=== PATIENT | female | born 1990 | race Caucasian/White ===

== ENCOUNTER 2017-12-23 18:36 | Emergency (ER) | payer MEDICAID ==
--- NOTE | 2017-12-23 19:01 | EDM.PDOC ---
ED HPI GENERAL MEDICAL PROBLEM - General Chief Complaint: Flank Pain Stated Complaint: right flank pain Time Seen by Provider: 12/23/17 18:50 Source of Information: Reports: Patient History Limitations: Reports: No Limitations - History of Present Illness INITIAL COMMENTS - FREE TEXT/NARRATIVE: Patient is a 27 year old female that presents to the ER. Patient reports that she is about 20 weeks . She is G1, P0, A0. The patient reports that today she has been having pains to her right back that wrap around her right side into the right lower abdomen "to bladder" per patient. She reports that she called her OB and was told that this is round ligament pain. The patent reports she is concerned that she has a bladder infection. Patient does report that the pain is worse with urination. Patient does report the pain is constantly there, but does wax and wane. Patient reports she was last week had a cyst on her right upper abdomen, this was opened, drained, packed. The area does not appear infected, and healing well. The patient denies [place], dizziness, n , v, d, f, cp, soa, neck pain, chest pain, pelvic pain, vaginal bleeding, pelvic cramping, vaginal discharge. Patient is alert and oriented. Will order UA. Patient has no pelvic pain, craping, bleeding, no adnexal tenderness on exam , will not order US. We do not have US available in [place] today as well. Onset: Today Quality: Reports: Ache Severity: Mild Improves with: Reports: None Worsens with: Reports: None Associated Symptoms: Denies: Confusion, Chest Pain, Cough, cough w sputum, Diaphoresis, Fever/Chills, Headaches, Loss of Appetite, Malaise, Nausea/Vomiting , Rash, Seizure, Shortness of Breath, Syncope, Weakness Treatments [employer]: Reports: Acetaminophen Right Flank Pain Score (Numeric/FACES): 7 - Related Data Allergies Allergy/AdvReac Type Severity Reaction Status Date / Time No Known Allergies Allergy Verified 12/23/17 18:37 Home Meds: Home Meds Pnv No.95/Ferrous Fum/Folic AC [ Multivitamin Tablet] 1 tab PO DAILY 04/04 [History] ED ROS GENERAL - Review of Systems Review Of Systems: See Below Constitutional: Reports: No Symptoms HEENT: Reports: No Symptoms Respiratory: Reports: No Symptoms Cardiovascular: Reports: No Symptoms Endocrine: Reports: No Symptoms GI/Abdominal: Reports: Abdominal Pain : Reports: No Symptoms Musculoskeletal: Reports: No Symptoms Skin: Reports: No Symptoms Neurological: Reports: No Symptoms Psychiatric: Reports: No Symptoms Hematologic/Lymphatic: Reports: No Symptoms Immunologic: Reports: No Symptoms ED EXAM, GI/ABD - Physical Exam Exam: See Below Exam Limited By: No Limitations General Appearance: Alert, WD/WN, No Apparent Distress Eyes: Bilateral: Normal Appearance Ears: Normal External Exam, Normal Canal, Hearing Grossly Normal, Normal TMs Nose: Normal Inspection, Normal Mucosa, No Blood Throat/Mouth: Normal Inspection, Normal Lips, Normal Teeth, Normal Gums, Normal Oropharynx, Normal Voice, No Airway Compromise Head: Atraumatic, Normocephalic Neck: Normal Inspection, Supple, Non-Tender, Full Range of Motion Respiratory/Chest: No Respiratory Distress, Lungs Clear, Normal Breath Sounds, No Accessory Muscle Use Cardiovascular: Normal Peripheral Pulses, Regular Rate, Rhythm, No Edema, No Gallop, No JVD, No Murmur, No Rub GI/Abdominal Exam: Normal Bowel Sounds, Soft, Non-Tender, No Organomegaly, No Distention, No Abnormal Bruit, No Mass, Pelvis Stable, Other ( Abdomen) (Female) Exam: Enlarged Uterus, Heart Tones. No: Adnexal Tenderness Rectal (Female) Exam: Deferred Back Exam: Normal Inspection, Full Range of Motion. No: CVA Tenderness (L), CVA Tenderness (R) Extremities: Normal Inspection, Normal Range of Motion, Non-Tender, No Pedal Edema, Normal Capillary Refill Neurological: Alert, Oriented, Normal Cognition, Normal Gait, No Motor/Sensory Deficits Psychiatric: Normal Affect, Normal Mood Skin Exam: Warm, Dry, Normal Color, No Rash, Wound/Incision (RUQ small incision site with packing. No redness, heat, drainage. ) Lymphatic: No Adenopathy Course - Vital Signs Last Recorded V/S: Last Vital Signs Temp 97.4 F 12/23/17 18:39 Pulse 77 12/23/17 18:39 Resp 18 12/23/17 18:39 BP 115/70 12/23/17 18:39 Pulse Ox 97 12/23/17 18:39 - Orders/Labs/Meds Orders: Active Orders 24 hr Category Date Time Status HCG QUALITATIVE,URINE [URCHEM] Stat Lab 12/23/17 18:57 Ordered URINALYSIS W/MICROSCOPIC [UA W/MICROSCOPIC] [URIN] Stat Lab 12/23/17 18:57 Ordered Labs: Laboratory Tests 12/23/17 12/23/17 Range/Units 18:57 18:57 Urine Color Yellow (YELLOW) Urine Appearance Clear (CLEAR) Urine pH 6.5 (4.5-8.0) Ur Specific [place] 1.020 (1.003-1.020) Urine Protein Negative (NEGATIVE) mg/dL Urine Glucose (UA) Negative (NEGATIVE) mg/dL Urine Ketones Negative (NEGATIVE) mg/dL Urine Occult Blood Negative (NEGATIVE) Urine Nitrite Negative (NEGATIVE) Urine Bilirubin Negative (NEGATIVE) Urine Urobilinogen 0.2 (0.2-1.0) EU/dL Ur Leukocyte Esterase Negative (NEGATIVE) Urine RBC Not seen (0-5) /HPF Urine WBC Not seen (0-5) /HPF Urine HCG, Qual Positive - Re-Assessments/Exams Free Text/Narrative Re-Assessment/Exam: 12/23/17 19:15 FHR: 152 12/23/17 19:16 Called and spoke to [facility] where her OB is. They report no other testing. Have patient followup with OB Monday. Discharge patient. Patient urine is completely normal. No infection, no ketones, no blood to indicate bleeding or ureter stones. Departure - Departure Time of Disposition: 19:15 Disposition: Home, Self-Care 01 Condition: Good Clinical Impression: Round ligament pain - Discharge Information Instructions: Round Ligament Pain Referrals: Cathleen Larson DO [Primary Care Provider] - Forms: ED Department Discharge Additional Instructions: Call and followup with your OB Return to the ER for worsening of condition or any emergent concerns such as increase in pain, bleeding Increase fluids - My Orders Last 24 Hours: My Active Orders 12/23/17 18:57 HCG QUALITATIVE,URINE [URCHEM] Stat URINALYSIS W/MICROSCOPIC [UA W/MICROSCOPIC] [URIN] Stat - Assessment/Plan Last 24 Hours: My Active Orders 12/23/17 18:57 HCG QUALITATIVE,URINE [URCHEM] Stat URINALYSIS W/MICROSCOPIC [UA W/MICROSCOPIC] [URIN] Stat Plan: PLEASE SEE RN NOTE FOR PFSH.
== END 2017-12-23 19:20 | disposition home or self-care (01) ==
LOC: CC.ED 18:36
DX: O99.89 Other specified diseases and conditions complicating pregnancy, childbirth and the puerperium (principal); R10.2 Pelvic and perineal pain; Z3A.20 20 weeks gestation of pregnancy
CPT/HCPCS: 81001; 81025; 99283